=== PATIENT | female | born 1940 | race Caucasian/White ===

== ENCOUNTER 2019-03-11 13:08 | Emergency (ER) | payer MEDICARE, BC ==
[~2019-03-11] VITALS: Ht 157.5 cm; Wt 78.2 kg
[~2019-03-11 13:08] MED LIST: ACET-2144 PO; CALC1TAB3 PO; CELE-193 PO; CHOL2000 PO; CYAN50003 PO; MULT-1074 PO; OMEP20TA5 PO
[2019-03-11 13:45] VITALS: BP 163/83
== END 2019-03-11 17:21 | disposition home or self-care (01) ==
LOC: ER 13:09
DX: N39.9 Disorder of urinary system, unspecified (principal); R33.9 Retention of urine, unspecified; Z90.710 Acquired absence of both cervix and uterus; Z98.890 Other specified postprocedural states; Z88.0 Allergy status to penicillin; Z88.6 Allergy status to analgesic agent; Z79.899 Other long term (current) drug therapy
CPT/HCPCS: 51702; 99284

== ENCOUNTER 2022-06-03 04:54 | Emergency (ER) | payer MEDICARE, BC ==
[~2022-06-03] VITALS: Ht 160 cm; Wt 61.3 kg
[~2022-06-03 04:54] MED LIST changes: -ACET-2144 PO; +ACET-3209 PO; +OMEP20TA43 PO; -OMEP20TA5 PO
--- NOTE | 2022-06-03 06:29 | NUR ---
past Monday turned to quicklly and felt pain left lower leg and radiates down leg. progressively getting worse. pain 07/11.
--- NOTE | 2022-06-03 06:31 | NUR ---
pt GFR LOW. LAST CHECKED 44
[2022-06-03 06:34] VITALS: BP 146/59
--- NOTE | 2022-06-03 06:58 | NUR ---
DRAINED SCHMITZ 225CC CLEAR YELLOW URINE
[2022-06-03] MEDS ORDERED: morphine IR (immed. release) 30mg tablet PO STA (07:21)
[2022-06-03] MEDS ORDERED: LIDOcaine 5% patch TP SCH (07:25)
[2022-06-03] MEDS ORDERED: MORP15TA PO ×5 (09:24→15:02)
== END 2022-06-03 09:44 | disposition home or self-care (01) ==
LOC: ER 04:54
DX: M54.30 Sciatica, unspecified side (principal); G89.29 Other chronic pain; M54.59 Other low back pain; L40.9 Psoriasis, unspecified; Z88.0 Allergy status to penicillin; Z88.6 Allergy status to analgesic agent; Z79.899 Other long term (current) drug therapy; Z79.1 Long term (current) use of non-steroidal anti-inflammatories (NSAID); Z79.2 Long term (current) use of antibiotics
CPT/HCPCS: 99283

== ENCOUNTER 2022-06-07 07:54 | Emergency (ER) | payer MEDICARE, BC ==
[~2022-06-07] VITALS: Ht 160 cm; Wt 61.4 kg
[~2022-06-07 07:54] MED LIST changes: +MORP15TA PO
[2022-06-07] MEDS ORDERED: naproxen 500mg tablet PO ONE (10:05)
[2022-06-07] MEDS ORDERED: triamcinolone acetonide 40mg/ml inj IM ONE (10:05)
[2022-06-07] MEDS ORDERED: acetaminophen 325mg tablet PO ONE (10:05)
[2022-06-07] MEDS ORDERED: MELO-100 PO (10:07)
[2022-06-07 10:24] VITALS: BP 130/62
== END 2022-06-07 10:25 | disposition home or self-care (01) ==
LOC: ER 07:54
DX: G89.29 Other chronic pain (principal); M19.90 Unspecified osteoarthritis, unspecified site; Z90.710 Acquired absence of both cervix and uterus; Z88.0 Allergy status to penicillin; Z88.8 Allergy status to other drugs, medicaments and biological substances; Z79.899 Other long term (current) drug therapy
CPT/HCPCS: 72128; 72131; 96372; 99284; J3301